=== PATIENT | male | born 1975 | race Caucasian/White ===

== ENCOUNTER 2016-08-31 10:10 | Inpatient (IN) ==
[2016-08-31] MEDS ORDERED: *HR* HYDROmorphone (PF) 1 MG/ML SYRINGE IVP ONE (10:23)
[2016-08-31] MEDS ORDERED: Ketorolac 30 MG/ML VIAL IV ONE (10:23)
--- NOTE | 2016-08-31 10:25 | Emergency Department Note ---
Disposition Clinical Impression: Right forearm cellulitis Disposition: Admitted As Inpatient Condition: Fair General Adult HPI - General Chief complaint: ED Extremity Injury, Upper Stated complaint: Arm injury due to a needle Time Seen by Provider: 08/31/16 10:19 Source: patient Limitations: no limitations - History of Present Illness Pain Scale: 10 - Related Data Home Medications Medication Instructions Recorded Confirmed Insulin Glargine,Hum.rec.anlog 50 unit SQ HS 03/05/16 03/05/16 [Lantus Solostar] Insulin LISPRO [Humalog Kwikpen 0 unit SQ TIDWM 03/05/16 03/05/16 U-100] Loratadine [Claritin] 10 mg PO DAILY 03/05/16 03/05/16 Oxycodone HCl 10 mg PO Q3H PRN 03/05/16 03/05/16 Ranitidine HCl [Heartburn Relief] 150 mg PO BID 03/05/16 03/05/16 Sennosides [Laxative] 17.2 mg PO HS 03/05/16 03/05/16 Previous Rx's Medication Instructions Recorded Guaifenesin [Mucinex] 1,200 mg PO BID PRN #60 tbbp.12hr 03/08/16 Levofloxacin [Levaquin] 750 mg PO DAILY #10 tablet 03/08/16 Cyclobenzaprine [Flexeril] 10 mg PO TID PRN #7 tablet 05/05/16 Ibuprofen [Motrin] 600 mg PO Q8HR PRN #10 tab 05/05/16 Allergies Allergy/AdvReac Type Severity Reaction Status Date / Time tramadol Allergy Rash Verified 03/05/16 11:37 hydrocodone AdvReac Vomiting Verified 03/05/16 11:37 Past Medical History - Past Medical History Medical history: Reports: diabetes Psychiatric history: Reports: no psych history - Social History Smoking Status: Current every day smoker Smokeless Tobacco Status: No Alcohol use: Reports: none Drug use: Reports: none, opiates, IVDU Physical Exam - General Limitations: no limitations General appearance: alert, in no apparent distress Course Vital Signs Temperature 99.6 F 08/31/16 10:11 Pulse Rate 101 08/31/16 10:11 Respiratory Rate 20 08/31/16 10:11 Blood Pressure 112/66 08/31/16 10:11 O2 Sat by Pulse Oximetry 97 08/31/16 10:11 Temperature 99.6 F 08/31/16 10:11 Pulse Rate 101 08/31/16 10:11 Respiratory Rate 16 08/31/16 12:19 Blood Pressure 101/76 08/31/16 12:19 O2 Sat by Pulse Oximetry 97 08/31/16 10:11 Oxygen Delivery Oxygen Delivery Room Air Medical Decision Making - Lab Data Result diagrams: 08/31/16 10:31 08/31/16 10:31 Lab Results 08/31/16 08/31/16 08/31/16 Range/Units 10:31 10:31 10:31 WBC 13.1 H (4.3-11.1) K/mcL RBC 5.18 (4.19-5.50) M/mcL Hgb 15.3 (12.9-16.9) g/dL Hct 42.9 (37.5-50.1) % MCV 82.8 L (83.0-100.0) fL MCH 29.5 (28.0-33.3) pg MCHC 35.7 H (31.6-35.5) g/dL RDW 12.4 (11.5-14.5) % Plt Count 270 (140-400) K/mcL MPV 10.1 (9.4-12.4) fL Immature Gran % 0.3 (0-4) % Seg Neutrophils % 87.7 % Lymphocytes % 6.6 % Monocytes % 4.9 % Eosinophils % 0.1 % Basophils % 0.4 % Neutrophils # 11.5 H (1.6-8.9) K/mcL Lymphocytes # 0.9 (0.6-4.6) K/mcL Monocytes # 0.6 (0.0-1.3) K/mcL Eosinophils # 0.0 (0.0-0.6) K/mcL Basophils # 0.1 (0.0-0.2) K/mcL PT 14.7 H (9.4-12.1) Seconds INR 1.4 APTT 33.6 (26.0-36.0) Seconds Sodium 134 L (136-145) mEq/L Potassium 3.4 L (3.5-4.5) mEq/L Chloride 96 L (98-109) mEq/L Carbon Dioxide 27 (19-29) mEq/L BUN 9 (8-26) mg/dL Creatinine 0.98 (0.72-1.25) mg/dL Est GFR ( Amer) > 60 (> 60) Est GFR (Non-Af Amer) > 60 (> 60) BUN/Creatinine Ratio 9 (6-26) Glucose 252 H (70-99) mg/dL Calculated Osmolality 285 (280-300) Calcium 9.6 (8.6-10.8) mg/dL Total Bilirubin 1.1 (0.2-1.2) mg/dL AST 8 (5-34) Units/L ALT 10 (0-55) Units/L Alkaline Phosphatase 87 (38-126) Units/L Serum Total Protein 7.7 (6.0-8.3) g/dL Albumin 3.4 L (3.5-5.0) g/dL Globulin 4.3 H (2.4-3.5) g/dL Albumin/Globulin Ratio 0.8 L (1.1-2.2) Attestation Statement - Attestation Attestation: I examined this patient and my medical decision-making was reviewed with the EDUCATIONAL RESOURCE COORDINATOR/PA/Advanced Practice Nurse/Resident Physician. I agree with the documented findings, disposition and treatment plan as described except to the extent set forth below. [id number] time provided Patient complains of right forearm pain and swelling. He states he dropped a refrigerator on the affected area 4 days ago. He attempted to drain the affected area with a needle yesterday. He is adamant that he has not used IV drugs for approximately one year. On presentation, the patient is very anxious and appears uncomfortable. He has a tense, tender, indurated, erythematous area to the volar aspect of his right proximal forearm. Plan of care and management discussed by me with the resident physician. IV enhanced CT of his right upper extremity ordered.
--- NOTE | 2016-08-31 10:39 | Emergency Department Note ---
Disposition Clinical Impression: Right forearm cellulitis Disposition: Admitted As Inpatient Condition: Fair Time of Disposition: 12:03 Trauma HPI - General Chief Complaint: ED Extremity Injury, Upper Stated Complaint: Arm injury due to a needle Time Seen by Provider: 08/31/16 10:19 Source: patient Mode of arrival: ambulatory Limitations: no limitations Nursing Notes Reviewed: Yes Vital Signs Reviewed: Yes - History of Present Illness HPI Narrative: Patient is a 41 year old male with history of psoriasis who presents with complaint of severe right forearm abscess and pain. Patient appears very uncomfortable and anxious. Patient reports 4 days ago he was cleaning out a commercial refrigerator and it feel onto his forearm pinning it to a fench. Patient reports initial severe pain and ability to move forearm slightly with decreased claims correspondence clerk strength. Patient denies any initial abrasions or lacerations. Patient reports that yesterday his forearm began to swell, turned red, and has been more painful. Patient reports he took a clean needle to it, but was unable to express anything other than blood. Patient woke up this morning and pain was more severe, unable to move his arm and hand due to pain, and reports numbing and tingling of fingers or right hand. Patient denies fevers, chills, sweats, headaches, changes in vision or hearing, nausea, vomiting, chest pain, shortness of breath, abdominal pain, changes in bowels or bladder. Of note, patient reports he is a prior IV drug user, last used 1 year ago, and is currently on suboxone therapy, last dose 3-4 days ago. Patient reports prior staph infection. Pt Subjective Complaint: injury Onset (ago): day(s) Location - Extremities: Right: forearm - Related Data Home Medications Medication Instructions Recorded Confirmed Insulin Glargine,Hum.rec.anlog 50 unit SQ HS 03/05/16 03/05/16 [Lantus Solostar] Insulin LISPRO [Humalog Kwikpen 0 unit SQ TIDWM 03/05/16 03/05/16 U-100] Loratadine [Claritin] 10 mg PO DAILY 03/05/16 03/05/16 Oxycodone HCl 10 mg PO Q3H PRN 03/05/16 03/05/16 Ranitidine HCl [Heartburn Relief] 150 mg PO BID 03/05/16 03/05/16 Sennosides [Laxative] 17.2 mg PO HS 03/05/16 03/05/16 Previous Rx's Medication Instructions Recorded Guaifenesin [Mucinex] 1,200 mg PO BID PRN #60 tbbp.12hr 03/08/16 Levofloxacin [Levaquin] 750 mg PO DAILY #10 tablet 03/08/16 Cyclobenzaprine [Flexeril] 10 mg PO TID PRN #7 tablet 05/05/16 Ibuprofen [Motrin] 600 mg PO Q8HR PRN #10 tab 05/05/16 Allergies Allergy/AdvReac Type Severity Reaction Status Date / Time tramadol Allergy Rash Verified 03/05/16 11:37 hydrocodone AdvReac Vomiting Verified 03/05/16 11:37 Constitutional: Reports: as per HPI, weakness. Denies: fever, chills, night sweats Eyes: Reports: as per HPI ENT ED: Reports: as per HPI Cardiovascular: Reports: as per HPI. Denies: chest pain, palpitations, syncope Respiratory: Reports: as per HPI. Denies: cough, dyspnea Gastrointestinal: Reports: as per HPI. Denies: abdominal pain, nausea, vomiting , diarrhea, constipation Genitourinary: Reports: as per HPI. Denies: dysuria Musculoskeletal: Reports: as per HPI, myalgia (R forearm). Denies: back pain, neck pain, joint swelling, arthralgia Integumentary: Reports: as per HPI. Denies: rash, abrasion, lesions Neurological: Reports: as per HPI, weakness, numbness, paresthesias. Denies: headache Psychiatric: Reports: as per HPI Endocrine: Reports: as per HPI Hematological/Lymphatic: Reports: as per HPI Past Medical History - Past Medical History Medical history: Reports: diabetes, other (psoriasis) Psychiatric history: Reports: no psych history - Social History Smoking Status: Current every day smoker Smokeless Tobacco Status: No Alcohol use: Reports: none Drug use: Reports: none, opiates, IVDU Physical Exam - General Limitations: no limitations General appearance: alert, anxious, in distress, cachectic - Head Head exam: atraumatic, normocephalic, normal inspection - Eye Eye exam: Present: normal appearance, PERRL, EOMI - ENT ENT exam: normal exam, normal oropharynx, mucous membranes moist - Neck Neck exam: Present: normal inspection, full ROM, trachea midline - Chest Chest inspection: Present: normal inspection, symmetric chest wall rise - Respiratory Respiratory exam: Present: normal lung sounds bilaterally, other (tachypnea) - Cardiovascular Cardiovascular exam: Present: normal rhythm, tachycardia, normal heart sounds, + S1, +S2 - Abdominal Exam Abdominal exam: Present: soft, Non-Tender, normal bowel sounds - Extremities Exam Extremities exam: Present: other (Right upper forearm: noted severe tenderness to light touch, swollen, firm, erythematous area about 6 cm x 3 cm long area, no lesions noted, decreased sensation right hand, decreased strength upper extremity and hand on right compared to left. Pulses equal bilaterally. ROM right upper extremity decreased secondary to pain.) - Back Exam Back exam: Present: full ROM. Absent: tenderness - Neurological Exam Neurological exam: Present: alert, oriented X3 - Psychiatric Psychiatric exam: Present: normal affect, anxious - Skin Skin exam: Present: warm, dry, intact, normal color, rash (multiple 5mm diameter scaly macular rash over entire body.), other (except as noted above) Course Course Narrative: Based on history and exam, suspect traumatic right forearm injury with cellulitis vs deep tissue infection vs myositis vs compartment syndrome complication. Imaging and labs ordered. Pain management. Vital Signs Temperature 99.6 F 08/31/16 10:11 Pulse Rate 101 08/31/16 10:11 Respiratory Rate 20 08/31/16 10:11 Blood Pressure 112/66 08/31/16 10:11 O2 Sat by Pulse Oximetry 97 08/31/16 10:11 Temperature 99.6 F 08/31/16 10:11 Pulse Rate 101 08/31/16 10:11 Respiratory Rate 16 08/31/16 12:19 Blood Pressure 101/76 08/31/16 12:19 O2 Sat by Pulse Oximetry 97 08/31/16 10:11 Oxygen Delivery Oxygen Delivery Room Air Trauma - [facility] Narrative Medical decision making narrative: Right forearm traumatic injury about 4 days ago. Complaint of severe pain with numbness, tingling, inability to move, and weakness due to pain. CT forearm reveals cellulitis without gas or abscess formation. Will start antibiotics including vancomycin and zosyn due to history of staph. - Lab Data Lab results reviewed: Yes I reviewed the patient's lab results. Result diagrams: 08/31/16 10:31 08/31/16 10:31 Lab Results 08/31/16 08/31/16 08/31/16 Range/Units 10:31 10:31 10:31 WBC 13.1 H (4.3-11.1) K/mcL RBC 5.18 (4.19-5.50) M/mcL Hgb 15.3 (12.9-16.9) g/dL Hct 42.9 (37.5-50.1) % MCV 82.8 L (83.0-100.0) fL MCH 29.5 (28.0-33.3) pg MCHC 35.7 H (31.6-35.5) g/dL RDW 12.4 (11.5-14.5) % Plt Count 270 (140-400) K/mcL MPV 10.1 (9.4-12.4) fL Immature Gran % 0.3 (0-4) % Seg Neutrophils % 87.7 % Lymphocytes % 6.6 % Monocytes % 4.9 % Eosinophils % 0.1 % Basophils % 0.4 % Neutrophils # 11.5 H (1.6-8.9) K/mcL Lymphocytes # 0.9 (0.6-4.6) K/mcL Monocytes # 0.6 (0.0-1.3) K/mcL Eosinophils # 0.0 (0.0-0.6) K/mcL Basophils # 0.1 (0.0-0.2) K/mcL PT 14.7 H (9.4-12.1) Seconds INR 1.4 APTT 33.6 (26.0-36.0) Seconds Sodium 134 L (136-145) mEq/L Potassium 3.4 L (3.5-4.5) mEq/L Chloride 96 L (98-109) mEq/L Carbon Dioxide 27 (19-29) mEq/L BUN 9 (8-26) mg/dL Creatinine 0.98 (0.72-1.25) mg/dL Est GFR ( Amer) > 60 (> 60) Est GFR (Non-Af Amer) > 60 (> 60) BUN/Creatinine Ratio 9 (6-26) Glucose 252 H (70-99) mg/dL Calculated Osmolality 285 (280-300) Calcium 9.6 (8.6-10.8) mg/dL Total Bilirubin 1.1 (0.2-1.2) mg/dL AST 8 (5-34) Units/L ALT 10 (0-55) Units/L Alkaline Phosphatase 87 (38-126) Units/L Serum Total Protein 7.7 (6.0-8.3) g/dL Albumin 3.4 L (3.5-5.0) g/dL Globulin 4.3 H (2.4-3.5) g/dL Albumin/Globulin Ratio 0.8 L (1.1-2.2) - Radiology Data Radiology results reviewed: Yes I reviewed the patient's radiology results. Elbow CT 08/31/16 10:23 IMPRESSION: Mild diffuse subcutaneous edema and fat stranding involving the right upper extremity is most consistent with cellulitis. There is no evidence of an abscess, soft tissue gas, or radiopaque foreign body. The osseous structures are intact, without evidence of osteomyelitis. D/ /31/2016 11:54:53 Miller Perry MD / alysia Interpreting Provider: Miller Perry MD
[2016-08-31 10:40] LABS: Basophils # 0.1 K/mcL (0.0-0.2); Basophils % 0.4 %; Eosinophils % 0.1 %; Hematocrit 42.9 % (37.5-50.1); Hemoglobin 15.3 g/dL (12.9-16.9); Immature Granulocytes % 0.3 % (0-4); Lymphocytes # 0.9 K/mcL (0.6-4.6); Lymphocytes % 6.6 %; Mean Corpuscular HGB Conc 35.7 g/dL (31.6-35.5); Mean Corpuscular Hemoglobin 29.5 pg (28.0-33.3); Mean Corpuscular Volume 82.8 fL (83.0-100.0); Mean Platelet Volume 10.1 fL (9.4-12.4); Monocytes # 0.6 K/mcL (0.0-1.3); Monocytes % 4.9 %; Neutrophils # 11.5 K/mcL (1.6-8.9); Platelet Count 270 K/mcL (140-400); Red Blood Count 5.18 M/mcL (4.19-5.50); Red Cell Distribution Width 12.4 % (11.5-14.5); Segmented Neutrophils % 87.7 %
[2016-08-31 10:51] LABS: INR 1.4; Prothrombin Time 14.7 Seconds (9.4-12.1)
[2016-08-31 10:54] LABS: Activated Partial Thrombo Time 33.6 Seconds (26.0-36.0)
[2016-08-31 10:55] LABS: Alanine Aminotransferase 10 Units/L (0-55); Albumin 3.4 g/dL (3.5-5.0); Albumin/Globulin Ratio 0.8 (1.1-2.2); Alkaline Phosphatase 87 Units/L (38-126); Aspartate Amino Transferase 8 Units/L (5-34); BUN/Creatinine Ratio 9 (6-26); Bilirubin,Total 1.1 mg/dL (0.2-1.2); Blood Urea Nitrogen 9 mg/dL (8-26); Calcium 9.6 mg/dL (8.6-10.8); Carbon Dioxide 27 mEq/L (19-29); Chloride 96 mEq/L (98-109); Globulin 4.3 g/dL (2.4-3.5); Glucose 252 mg/dL (70-99); Osmolality,Calculated 285 (280-300); Potassium 3.4 mEq/L (3.5-4.5); Sodium 134 mEq/L (136-145); Total Protein 7.7 g/dL (6.0-8.3); eGFR For African Americans > 60 (> 60); eGFR For Non-African Americans > 60 (> 60)
[2016-08-31] MEDS ORDERED: Ondansetron ODT 4 MG TAB.RAPDIS SL ONE (11:12)
[2016-08-31] MEDS ORDERED: Piperacillin/Tazobactam 3.375 GM in D5% in Water (Mini-Bag+) 100 ML IVPB ONE (11:59)
[2016-08-31] MEDS ORDERED: Vancomycin 1,000 MG in D5% in Water 250 ML IVPB ONE (11:59)
[2016-08-31] MEDS ORDERED: *HR* HYDROmorphone (PF) 1 MG/ML SYRINGE IVP PRN (13:07)
[2016-08-31] MEDS ORDERED: Naloxone 0.4 MG/ML INJ IVP PRN ×2 (13:07→17:04)
[2016-08-31] MEDS ORDERED: *HR* OxyCODONE Immed Rel 5 MG TABLET PO PRN (13:07)
[2016-08-31] MEDS ORDERED: Ondansetron 4 MG/2 ML VIAL IVP PRN ×2 (13:07→17:04)
[2016-08-31] MEDS ORDERED: *HR* Dextrose 50 % in Water (Syg) 50 ML SYRINGE IVP PRN ×2 (13:11→17:04)
[2016-08-31] MEDS ORDERED: Dextrose Gel 15 GM PO PRN ×4 (13:11→17:04)
[2016-08-31] MEDS ORDERED: D5% in Water 1,000 ML IV PRN ×2 (13:11→17:04)
--- NOTE | 2016-08-31 13:15 | Internal Med History&Physical ---
Date of Encounter: 08/31/16 Time of Encounter: 12:45 Internal Medicine - H&P: HPI Chief complaint: Right upper arm pain and swelling after trauma. Admitted From: Emergency Dept Plans for Post Hospital Care: Home History of present illness: Mr. Medina is a 41 year old male with medical history of psoriasis, chronic hepatitis, history of IVDU (heroine) presents with severe pain and swelling in the mid upper arm of 1 week duration. He report traumatic injury when a refrigerator fell on his left elbow. He reports he nicked the swelling yesterday with a small lancet in a bid to drain it but he observed no drainage. Pain and swelling increased subsequently. He reports mild fever,, he has been unable to move the arm of use the fingers of that arm. He reports tingling sensation in the fingers of the hand, and decreased foster care therapist and fine motor movements. He denies chills, sweats, headaches, changes in vision or hearing, nausea, vomiting, chest pain, shortness of breath, abdominal pain, no gastrointestinal, urinary or respiratory symptoms. No other constitutional symptoms. He reports his last use of Heroine was over a year ago, and he is presently on Suboxone therapy. He does not recall if he ever had MRSA. He has chronic hepatitis C. He is FULL CODE as per discussion, and he nominates his [place] ([phone]) as his NOK/POA. ROS: A 10 point ROS was performed. see HPI. Positives and relevant negatives are detailed, system-symptom not mention assumed negative unless otherwise stated. Family history: fATHER AND MOTHER: dm2, brother: ESRD on HD. Vital Signs Temperature 99.6 F 08/31/16 10:11 Pulse Rate 101 08/31/16 10:11 Respiratory Rate 20 08/31/16 10:11 Blood Pressure 112/66 08/31/16 10:11 O2 Sat by Pulse Oximetry 97 08/31/16 10:11 Temperature 99.6 F 08/31/16 10:11 Pulse Rate 101 08/31/16 10:11 Respiratory Rate 16 08/31/16 12:19 Blood Pressure 101/76 08/31/16 12:19 O2 Sat by Pulse Oximetry 97 08/31/16 10:11 In marked distress from pain, ill/toxic looking. Not pale, anicteric, afebrile, acyanotic. Poor dental hygiene, carious teeth, periodontitis HEENT: No JVD, no cervical lymphadenopathy, Chest : CTAB Heart: Mild tachycardia, RR, HS1/2, no m/r/g. Abdomen: soft, vague, inconsitent non-localized abdominal wall tenderness, no guarding, no rebound, no masses, BS+ : No flank tenderness, no CVA tenderness, no suprapubic tenderness. ENTERER: AAO . Skin:Seborrheic dermatitis of face, extensive psoriasis, on extremities. Extremities: Right cubital fossa tense, overlying erythma, no fluctuance elicited, ascending tenderness up to the lateral group of axillary lymph nodes without palpable lymphadenopathy. Ulnar and radial pulses still palpable. He is only barely able to flex and extend the fingers and wrist of the left upper arm. No pedal edema, normal pedal pulses, no calf tenderness. Lab Results 08/31/16 08/31/16 08/31/16 Range/Units 10:31 10:31 10:31 WBC 13.1 H (4.3-11.1) K/mcL RBC 5.18 (4.19-5.50) M/mcL Hgb 15.3 (12.9-16.9) g/dL Hct 42.9 (37.5-50.1) % MCV 82.8 L (83.0-100.0) fL MCH 29.5 (28.0-33.3) pg MCHC 35.7 H (31.6-35.5) g/dL RDW 12.4 (11.5-14.5) % Plt Count 270 (140-400) K/mcL MPV 10.1 (9.4-12.4) fL Immature Gran % 0.3 (0-4) % Seg Neutrophils % 87.7 % Lymphocytes % 6.6 % Monocytes % 4.9 % Eosinophils % 0.1 % Basophils % 0.4 % Neutrophils # 11.5 H (1.6-8.9) K/mcL Lymphocytes # 0.9 (0.6-4.6) K/mcL Monocytes # 0.6 (0.0-1.3) K/mcL Eosinophils # 0.0 (0.0-0.6) K/mcL Basophils # 0.1 (0.0-0.2) K/mcL PT 14.7 H (9.4-12.1) Seconds INR 1.4 APTT 33.6 (26.0-36.0) Seconds Sodium 134 L (136-145) mEq/L Potassium 3.4 L (3.5-4.5) mEq/L Chloride 96 L (98-109) mEq/L Carbon Dioxide 27 (19-29) mEq/L BUN 9 (8-26) mg/dL Creatinine 0.98 (0.72-1.25) mg/dL Est GFR ( Amer) > 60 (> 60) Est GFR (Non-Af Amer) > 60 (> 60) BUN/Creatinine Ratio 9 (6-26) Glucose 252 H (70-99) mg/dL Calculated Osmolality 285 (280-300) Calcium 9.6 (8.6-10.8) mg/dL Total Bilirubin 1.1 (0.2-1.2) mg/dL AST 8 (5-34) Units/L ALT 10 (0-55) Units/L Alkaline Phosphatase 87 (38-126) Units/L Serum Total Protein 7.7 (6.0-8.3) g/dL Albumin 3.4 L (3.5-5.0) g/dL Globulin 4.3 H (2.4-3.5) g/dL Albumin/Globulin Ratio 0.8 L (1.1-2.2) CT elbow (right) Soft tissue edema and stranding. No abscess, no gas, no fluid collection. Consistent with cellulitis. IMP 1. Right cubital cellulitis, probable ascending lymphangitis and or infective thrombophlebitis. Traumatic vs related to intravenous drug use 2. At risk of compartment syndrome 3. Probable continuing intravenous illicit drug use. 4. Mild hyponatremia, hypokalemia. 5. Periodontitis and caries. Chronic morbidities DM2 on insulin Chronic hepatitis c from illicit drug use, not on anti-virals Sebrorrheic dematitis (facial) Psoriasis. No acute flare. PLAN Admit Consult hand surgeon Venous doppler of right upper extremity IV Zosyn and vancomycin Blood culture x 2 Optimal pain control Urine drug screen Elevate arm Insulin, Levemir 25u BID, medium dose insulin sliding scale TIDAC and low dose scale QHS Lovenox 40 mg SC QD for DVT prophylaxis F/U with program therapist to treat seborrheic dermatitis of face and psoriasis. F/U with decision science analyst in the out-patient' for treatment of chronic hepatitis C. I discussed my assessment with the patient, he verbalized understanding and is agreeable to admission. He is huong risk for sepsis and compartment syndrome. Past Med Surg Social Fam HX - Past Medical History Medical history: diabetes, hepatitis, liver disease (chronic hepatitis C), other (history of illicit drug use, psoriasis, seborrheic dermatitis (face)) Psychiatric history: no psych history - Past Surgical History Surgical History: other (hemorrhoidectomy.) - Social History Smoking Status: Current every day smoker Packs per day: 0.5ppd. Smokeless Tobacco Status: No Alcohol use: none Drug use: none (he denies use in the past year.), opiates, IVDU Occupational status: unemployed Current living situation: Home - Independent Activity Level: Independent ambulation Recent Out of Country Travel Within the Last 8 Weeks: No Exposure or Possible Exposure to Illness During Travel: No - Family History Mother Hx Family Endocrine Disorder: Yes (DM) Internal Medicine - H&P: Meds Insulin Glargine,Hum.rec.anlog [Lantus Solostar] 55 unit SQ HS 03/05/16 [History ] Insulin LISPRO [Humalog Kwikpen U-100] 14 unit SQ TIDWM 03/05/16 [History] Allergies hydrocodone Allergy (Verified 08/31/16 13:44) Rash tramadol Allergy (Verified 03/05/16 11:37) Rash All Systems PM: A 10-system review of systems was performed and is negative for pertinent findings except as documented above in the HPI. - Constitutional Constitutional: as per HPI - EENT Eyes: as per HPI Ears: as per HPI Nose, mouth and throat: as per HPI - Breasts Breasts: as per HPI - Cardiovascular Cardiovascular ROS IM: as per HPI - Respiratory Respiratory: as per HPI - Gastrointestinal Gastrointestinal: as per HPI - Genitourinary Genitourinary ROS male: as per HPI - Musculoskeletal Musculoskeletal ROS IM: as per HPI - Neurological Neurological ROS: as per HPI - Psychiatric Psychiatric: as per HPI - Endocrine Endocrine IM: as per HPI - Hematologic/Lymphatic Hematologic/Lymphatic: as per HPI - Allergic/Immunologic Allergic/Immunologic: as per HPI - Constitutional Vitals: Temp Pulse Resp BP Pulse Ox 99.6 F 101 16 101/76 97 08/31/16 10:11 08/31/16 10:11 08/31/16 12:19 08/31/16 12:19 08/31/16 10:11 Internal Med - H&P Results - Labs CBC & Chem 7: 08/31/16 10:31 08/31/16 10:31
[2016-08-31] MEDS ORDERED: 0.9 % Sodium Chloride w KCl 40 MEQ/1,000 ML MLS IVC SCH (13:30)
[2016-08-31] MEDS ORDERED: Vancomycin 1,250 MG in D5% in Water 250 ML IVPB SCH (14:00)
--- NOTE | 2016-08-31 14:55 | Orthopedic Consult Note ---
Date of Encounter: 08/31/16 Time of Encounter: 14:30 Assessment and Plan (1) Right forearm cellulitis Current Visit: Yes Status: Acute I believe there is an abscess developing in the antecubital fossa The patient will be taken out of her room for an incision drainage. The risks, benefits alternatives were discussed. He is aware that there will be left open to drain with packing. The wound will close by secondary intention. History of Present Illness Chief complaint: Right elbow pain and swelling HPI: Mr. Medina is a 41 year old male who is right-hand dominant, complaining of a 4 day history of right elbow swelling and pain. The patient reports that a refrigerator fell of his forearm 4 days ago. Less than a got red and swollen , and he states that he used a small needle to try and drain it and got worse overnight. The patient came in to emergency room this morning. Patient has significant past history of IV drug abuse with heroin. Patient states he has not used heroin for 1 year now. Past Med Surg Social Fam HX - Past Medical History Medical history: diabetes, hepatitis, liver disease (chronic hepatitis C), other (history of illicit drug use, psoriasis, seborrheic dermatitis (face)) Psychiatric history: no psych history - Past Surgical History Surgical History: other (hemorrhoidectomy.) - Social History Smoking Status: Current every day smoker Packs per day: 0.5ppd. Smokeless Tobacco Status: No Alcohol use: none Drug use: none (he denies use in the past year.), opiates, IVDU - Family History Mother Hx Family Endocrine Disorder: Yes (DM) Medications and Allergies Insulin Glargine,Hum.rec.anlog [Lantus Solostar] 55 unit SQ HS 03/05/16 [History ] Insulin LISPRO [Humalog Kwikpen U-100] 14 unit SQ TIDWM 03/05/16 [History] Allergies hydrocodone Allergy (Verified 08/31/16 13:44) Rash tramadol Allergy (Verified 03/05/16 11:37) Rash All Systems Reviewed: A 10-system review of systems was performed and is negative for pertinent findings except as documented above in the HPI. Physical Exam - Constitutional Vitals: Temp Pulse Resp BP Pulse Ox 99.6 F 101 16 101/76 97 08/31/16 10:11 08/31/16 10:11 08/31/16 12:19 08/31/16 12:19 08/31/16 10:11 - Elbow right Location of pain elbow: anterior Pain modifiers elbow: with motion Stiffness: Yes Swelling: Yes Other symptoms OR: other (Positive erythema in the antecubital fossa, he is very tender and fairly tense localized area, no fluctuance or gas crepitus felt) Results - Labs Result Diagrams: 08/31/16 10:31 08/31/16 10:31 Labs: Abnormal lab results WBC 13.1 K/mcL (4.3-11.1) H 08/31/16 10:31 MCV 82.8 fL (83.0-100.0) L 08/31/16 10:31 MCHC 35.7 g/dL (31.6-35.5) H 08/31/16 10:31 Neutrophils # 11.5 K/mcL (1.6-8.9) H 08/31/16 10:31 PT 14.7 Seconds (9.4-12.1) H 08/31/16 10:31 Sodium 134 mEq/L (136-145) L 08/31/16 10:31 Potassium 3.4 mEq/L (3.5-4.5) L 08/31/16 10:31 Chloride 96 mEq/L (98-109) L 08/31/16 10:31 Glucose 252 mg/dL (70-99) H 08/31/16 10:31 Albumin 3.4 g/dL (3.5-5.0) L 08/31/16 10:31 Globulin 4.3 g/dL (2.4-3.5) H 08/31/16 10:31 Albumin/Globulin Ratio 0.8 (1.1-2.2) L 08/31/16 10:31 All other labs normal. Consult Discharge Plan - Plan Referrals: Óscar Doyle MD [Primary Care Provider] -
[2016-08-31] MEDS ORDERED: Bupivacaine-MPF 0.25% 10 ML VIAL ONE (15:07)
[2016-08-31] MEDS ORDERED: Lidocaine -MPF 1% 5 ML AMPUL ONE (15:07)
--- NOTE | 2016-08-31 15:14 | Anesthesia Evaluation PreOp ---
Date of Encounter: 08/31/16 Time of Encounter: 15:15 - Past History Planned Operation: I and D Rt Elbow Cardiac History: Denies any Significant Hx Pulmonary History: Smoker STEAMBLASTER History: Denies Any Significant HX Other Medical History: Hepatic (Hep C), Diabetes Type II Anesthesia History: No Prior Anesthetic Complications Alcohol Use: none Drug use: opiates, IVDU Medications and Allergies Insulin Glargine,Hum.rec.anlog [Lantus Solostar] 55 unit SQ HS 03/05/16 [History ] Insulin LISPRO [Humalog Kwikpen U-100] 14 unit SQ TIDWM 03/05/16 [History] Allergies hydrocodone Allergy (Verified 08/31/16 13:44) Rash tramadol Allergy (Verified 03/05/16 11:37) Rash - Meds/Allergy Pre-op Review Medications Reviewed: Yes Allergies Reviewed: Yes Beta Blockers on Current Med List: No Anesthesia Results - Labs 08/31/16 10:31 08/31/16 10:31 Anesthesia Exam O2 Sat Height 1.83 m Weight 79.379 kg O2 Sat by Pulse Oximetry 97 Vital Signs Temp Pulse Resp BP Pulse Ox 99.6 F 101 20 112/66 97 08/31/16 10:11 08/31/16 10:11 08/31/16 10:11 08/31/16 10:11 08/31/16 10:11 Height: 6'0 Weight: 175 lbs NPO (# of Hours): MN - HEENT Pupil (Motor): Pupils equal, EOMI Mallampati: II Teeth: Normal Oral Opening: Greater than 3 - STEAMBLASTER LOC: Oriented STEAMBLASTER Motor: Normal RUE, Normal LUE, Normal RLE, Normal LLE, Normal Face STEAMBLASTER Sensory: Normal: RUE, LUE, RLE, LLE, Face - Cardiac Rhythm: Regular Murmur: None - Pulmonary Breath Sounds: bilateral Clear Respiratory Effort: Symmetrical Anesthesia Assess/Plan ASA Score: 2, E Anesthetic Plan: General Monitoring Plan: Standard Monitors Recovery Plan: PACU (Discussed GA, agrees to proceed)
[2016-08-31] MEDS ORDERED: Albuterol 2.5 MG/3 ML NEBULIZER ONE (15:19)
[2016-08-31] MEDS ORDERED: Albuterol 2.5 MG/3 ML NEBULIZER IH ONE (15:20)
[2016-08-31] MEDS ORDERED: *HR* FentaNYL (PF) 100 MCG/2 ML VIAL ONE ×2 (15:22→15:24)
[2016-08-31] MEDS ORDERED: *HR* Propofol 200 MG/20 ML VIAL IVP ONE (15:22)
[2016-08-31] MEDS ORDERED: *HR* Succinylcholine 200 MG/10 ML VIAL IVP ONE (15:23)
[2016-08-31] MEDS ORDERED: Lidocaine -MPF 4% 5 ML AMPUL ONE (15:23)
[2016-08-31] MEDS ORDERED: Lidocaine -MPF 2% 2 ML VIAL ONE (15:23)
[2016-08-31] MEDS ORDERED: Vancomycin 1,250 MG in D5% in Water 250 ML IVPB ONE ×3 (15:28→20:00)
[2016-08-31] MEDS ORDERED: *HR* HYDROmorphone 2 MG/ML SYRINGE ONE (15:49)
[2016-08-31] MEDS ORDERED: Piperacillin/Tazobactam 3.375 GM in D5% in Water (Mini-Bag+) 100 ML IVPB SCH (16:00)
[2016-08-31] MEDS ORDERED: Ondansetron 4 MG/2 ML VIAL ONE (16:02)
[2016-08-31] MEDS ORDERED: Dexamethasone 4 MG/ML VIAL ONE (16:02)
--- NOTE | 2016-08-31 16:27 | Operative Note ---
Date of procedure: 08/31/16 Pre-op diagnosis: Right forearm abscess Post-op diagnosis: same Procedure: Right forearm/elbow incision drainage of deep abscess Anesthesia: ANNA Surgeon: Maykel Batres Estimated blood loss (cc): 3 Tourniquet Time (Minutes): 2 Specimen: To microbiology Condition: stable Disposition: PACU Procedure in Detail: Indications: The patient is a 41-year-old man complaining of a increasing swelling and erythema in is right forearm/ antecubital fossa. The CT scan shows signs of cellulitis. Clinic exam shows an area of erythema where the skin is fairly tense and swollen in this area of cellulitis. Procedure: The patient received IV antibiotics on the floor and holding area, was brought into the operating room and placed on the OR table in supine position with the right upper extremity on a hand table. The patient underwent general anesthesia. A tourniquet was placed on the right arm close to the axilla, and the right upper extremity was then prepped and draped in usual sterile fashion. A timeout was performed. The right upper extremity was then elevated, exsanguinated with an Rajendra wrap, and the tourniquet was raised to a pressure of 250 mmHg. A 4-5 cm longitudinal incision made on the volar aspect of the right forearm, and the radial side of the FCR muscle, 2 is a the antecubital fossa, ending approximate 2-3 cm distal to the elbow flexion crease. The subcutaneous tissues was bluntly dissected. Ointment I dissected down to the level of the muscle fascia, there was turbid appearing fluid. On deeper dissection under the muscle fascia, towards the antecubital region, a pocket of pus was encountered. This was cultured for Gram stain, aerobic and anaerobic. I continued spreading under the area of cellulitis including the medial aspect of the elbow. The tourniquet was deflated after 2 minutes. The wounds copiously with normal saline. The soft tissue was pressed on think he show to express any more purulent fluid. Once again irrigating further with normal saline. Hemostasis of the skin edges was obtained with bipolar electrocautery. The wound is packed with 2 inch iodoform packing. The skin incision was closed with 3-0 nylonmattress and simple sutures, leaving the central area open where the packing is coming out. Prior to complete closure of the wound was infiltrated with 10 mL of 0.25% Marcaine for postop pain control. Sterile dressings applied. The patient was extubated and taken to recovery in stable condition.
[2016-08-31] MEDS ORDERED: Insulin LISPRO 300 UNITS/3 ML VIAL SQ SCH ×2 (16:30→21:00)
--- NOTE | 2016-08-31 16:38 | Anesthesia Evaluation Post Op ---
Date of Encounter: 08/31/16 Time of Encounter: 16:40 - Vital Signs Vital Signs: Vital Signs/O2 Sat/Glucose, Most Current Temp Pulse Resp BP Pulse Ox 08/31/16 16:29 90 18 105/67 100 08/31/16 16:19 103.3 F H 96 18 100/58 99 - Lungs Lungs: Clear Ascult./Percussion - Airway Airway: Non-obstructed - Cardiovascular Regular Rate - Mental Status Mental Status: Alert & Oriented, Answers Appropriately - Pain Pain Scale: 0 - Nausea Vomiting Nausea Vomiting: Not Present - Hydration Hydration: Ice chips - Discharge PostOp Status: Transfer Patient to floor
[2016-08-31 18:23] LABS: Amphetamine Screen,Urine Negative ng/mL (Cutoff=1000); Barbiturate Screen,Urine Negative ng/mL (Cutoff=200); Benzodiazepines Screen,Urine Negative ng/mL (Cutoff=200); Cannabinoid Screen,Urine Negative ng/mL (Cutoff = 50); Cocaine Screen,Urine Negative ng/mL (Cutoff= 300); Opiate Screen,Urine Positive ng/mL (Cutoff=300); Phencyclidine Screen,Urine Negative ng/mL (Cutoff=25)
[2016-08-31] MEDS: *HR* HYDROmorphone (PF) 1 MG/ML SYRINGE IVP PRN (19:49)
[2016-08-31] MEDS: Insulin LISPRO 300 UNITS/3 ML VIAL SQ SCH ×2 (20:51→22:07)
[2016-08-31] MEDS: 0.9 % Sodium Chloride w KCl 40 MEQ/1,000 ML MLS IVC SCH (20:56)
[2016-08-31] MEDS ORDERED: Insulin DETEMIR 100 UNIT/ML X5UNITS SQ SCH (21:00)
[2016-08-31] MEDS: Acetaminophen 325 MG TABLET PO PRN (21:02)
[2016-08-31] MEDS: Insulin DETEMIR 100 UNIT/ML X5UNITS SQ SCH ×2 (22:07→23:33)
[2016-08-31] MEDS: Piperacillin/Tazobactam 3.375 GM in D5% in Water (Mini-Bag+) 100 ML IVPB SCH (22:07)
[2016-09-01] MEDS: *HR* HYDROmorphone (PF) 1 MG/ML SYRINGE IVP PRN ×8 (00:07→23:59)
[2016-09-01] MEDS ORDERED: Insulin LISPRO 300 UNITS/3 ML VIAL SQ ONE (00:35)
[2016-09-01 05:19] LABS: Basophils % 0.3 %; Eosinophils % 0.2 %; Hematocrit 33.6 % (37.5-50.1); Immature Granulocytes % 0.3 % (0-4); Lymphocytes # 0.9 K/mcL (0.6-4.6); Lymphocytes % 14.6 %; Mean Corpuscular Volume 83.2 fL (83.0-100.0); Mean Platelet Volume 10.4 fL (9.4-12.4); Monocytes # 0.8 K/mcL (0.0-1.3); Monocytes % 11.9 %; Platelet Count 189 K/mcL (140-400); Red Blood Count 4.04 M/mcL (4.19-5.50); Red Cell Distribution Width 12.3 % (11.5-14.5); Segmented Neutrophils % 72.7 %
[2016-09-01 05:22] LABS: Hemoglobin 12.1 g/dL (12.9-16.9); Neutrophils # 4.7 K/mcL (1.6-8.9)
[2016-09-01 05:39] LABS: BUN/Creatinine Ratio 20 (6-26); Blood Urea Nitrogen 15 mg/dL (8-26); Calcium 8.5 mg/dL (8.6-10.8); Carbon Dioxide 25 mEq/L (19-29); Chloride 104 mEq/L (98-109); Glucose 189 mg/dL (70-99); Osmolality,Calculated 286 (280-300); Potassium 4.2 mEq/L (3.5-4.5); Sodium 135 mEq/L (136-145); eGFR For African Americans > 60 (> 60); eGFR For Non-African Americans > 60 (> 60)
[2016-09-01] MEDS: *HR* OxyCODONE Immed Rel 5 MG TABLET PO PRN ×2 (05:46→09:56)
[2016-09-01] MEDS: Piperacillin/Tazobactam 3.375 GM in D5% in Water (Mini-Bag+) 100 ML IVPB SCH ×3 (05:47→20:23)
[2016-09-01] MEDS: *HR* Enoxaparin 40 MG/0.4 ML SYRINGE SQ SCH (05:47)
[2016-09-01] MEDS ORDERED: *HR* Enoxaparin 40 MG/0.4 ML SYRINGE SQ SCH (06:00)
[2016-09-01] MEDS: 0.9 % Sodium Chloride w KCl 40 MEQ/1,000 ML MLS IVC SCH (07:13)
--- NOTE | 2016-09-01 07:51 | Venous Imaging Report ---
UE Venous Duplex Patient Name:Sridhar Medina Order Number:[id number] Procedure Date:08/31/2016 Date:1975Age:41 yrs Gender:Male Location:[facility] Room #: 3A46 Business Rules Analyst:Rudy Handley RVT, RDCS Referring MD:Jonny Neumann MD tavern car attendant:Óscar Doyle MD Reading MD:Pb Quintanilla MD Primary Indications:Right arm pain Secondary Indications: Impressions: Normal right upper extremity deep venous exam. Acute superficial thrombosis is present in the right cephalic vein. Normal contralateral common femoral vein. Recommendations: After imaging the patient returned to their room. Test completed on 08/31/2016 at 3:02:00 pm. Critical findings reported to ANTWAN Tafoya in person at 3:04:00 pm on 08/31/2016 by Rudy Handley RVT, RDCS. Findings Venous Duplex Results: Right: Venous imaging of the upper extremity reveals full patency and normal vessel compressibility of the right jugular, right subclavian, right axillary, right brachial, right basilic, right radial and right ulnar. Doppler signals in the evaluated veins were normal. There is an acute occlusive thrombus seen in the right cephalic. It demonstrates an incompressible vein. Flow was absent and it did not augment. Left: Venous imaging of the upper extremity reveals full patency and normal vessel compressibility of the left subclavian. Doppler signals in the evaluated veins were normal. Prior Study: No prior study available for comparison. Upper Extremity Venous Duplex Side Vein Compress Spontaneous Flow Augment Right Jugular Normal Yes Phasic Yes Right Subclavian Normal Yes Phasic Yes Right Axillary Normal Yes Phasic Yes Right Brachial Normal Yes Phasic Yes Right Cephalic None no Absent no Right Basilic Normal Yes Phasic Yes Right Radial Normal Yes Phasic Yes Right Ulnar Normal Yes Phasic Yes Left Subclavian Normal Yes Phasic Yes Updated by Pb Quintanilla MD on 09/01/2016 7:42:40 AM electronically signed on 09/01/2016 7:45:58 AM with status of Final
[2016-09-01] MEDS: Insulin LISPRO 300 UNITS/3 ML VIAL SQ SCH ×7 (08:58→20:25)
[2016-09-01] MEDS: Insulin DETEMIR 100 UNIT/ML X5UNITS SQ SCH ×3 (08:59→20:26)
[2016-09-01] MEDS: Vancomycin 1,000 MG in D5% in Water 250 ML IVPB SCH ×2 (09:00→20:24)
[2016-09-01] MEDS: Acetaminophen 325 MG TABLET PO PRN (09:21)
--- NOTE | 2016-09-01 13:18 | Internal Med Progress Note ---
Date of Encounter: 09/01/16 Time of Encounter: 12:40 - Assessment and plan (1) Right forearm cellulitis Current Visit: Yes Status: Acute Assessment and plan: S/P right forearm/elbow Incision & Drainage of Deep abscess by Dr. Batres ( consultation appreciated) Continue IV antibiotics Vancomycin and Zosyn Pharmacy to dose antibiotics, and monitor vancomycin trough. 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 Qualified Code(s): E11.65 - Type 2 diabetes mellitus with hyperglycemia; Z79.4 - FDC (current) use of insulin (3) Hepatitis-C Current Visit: No Status: Chronic Qualifiers: Viral hepatitis chronicity: chronic Hepatic coma status: without hepatic coma Qualified Code(s): B18.2 - Chronic viral hepatitis C (4) DVT prophylaxis Current Visit: Yes Status: Acute Assessment and plan: Lovenox SQ (5) Smoker Current Visit: No Status: Chronic Assessment and plan: Smoking cessation counseling provided patient not ready to quit at this time Refused nicotine replacement therapy at this time (6) History of drug abuse Current Visit: Yes Status: Chronic Assessment and plan: Patient states he has been clean for the last 1.5years Denies any drug use prior to this hospitalization - Subjective Interval history: Patient seen and examined at bedside. Patient status post I&D of abscess in the antecubital fossa. Patient appears to be in no distress and was talking comfortably on the phone as I entered the room, and as the patient saw me, he started reporting of severe pain in his right arm. Patient has history of drug abuse and drug-seeking tendencies, and as per the nursing staff, patient appears to be in no distress until he sees a medical staff member. He states only Dilaudid helps with his pain and no other medications help including the Roxicodone. No other complaints reported at this time. - Constitutional Vitals: Temp Pulse Resp BP Pulse Ox 97.9 F 80 18 99/48 96 09/01/16 12:05 03/06/17 12:05 09/01/16 12:05 09/01/16 12:05 09/01/16 12:05 General appearance: Present: A&O X 3, no acute distress, answers questions appropriately - Head Head exam: Present: atraumatic, normocephalic - Eye Eye exam: Present: PERRL, conjuntiva pink, sclera anicteric - Respiratory Respiratory exam: Present: CTAB. Absent: accessory muscle use, rales, rhonchi, wheezes - Cardiovascular Cardiovascular exam: Present: RRR, +S1, +S2. Absent: diastolic murmur, gallop, rubs, systolic murmur - GI/Abdominal GI/Abdominal exam: Present: normal bowel sounds, soft, no peritoneal signs. Absent: distended, tenderness - Extremities Exam Extremities exam: Present: warm, radial pulses palpable and symetrical. Absent : calf tenderness, pedal edema (Right arm wrapped in dressing) - Neurological Exam Neurological exam: Present: alert, oriented X3 - Psychiatric Psychiatric exam: Present: normal affect, normal mood Internal Medicine: Result - Labs CBC & Chem 7: 09/01/16 05:04 09/01/16 05:04 Labs: Short CBC 09/01/16 Range/Units 05:04 WBC 6.4 D (4.3-11.1) K/mcL Hgb 12.1 L D (12.9-16.9) g/dL Hct 33.6 L (37.5-50.1) % Plt Count 189 (140-400) K/mcL Neutrophils # 4.7 (1.6-8.9) K/mcL BMP 09/01/16 05:04 Sodium 135 L Potassium 4.2 Chloride 104 Carbon Dioxide 25 BUN 15 Creatinine 0.74 Glucose 189 H Calcium 8.5 L - ABG Interpretation ABG results: PT/INR, D-dimer PT 14.7 Seconds (9.4-12.1) H 08/31/16 10:31 - VTE Documentation of Mechanical Device: Intermittent pneumatic compression device Consult Discharge Plan - Plan Referrals: Óscar Doyle MD [Primary Care Provider] -
[2016-09-01] MEDS: Ketorolac 15 MG/ML VIAL IVP PRN ×2 (13:47→20:23)
--- NOTE | 2016-09-01 14:43 | Orthopedics Progress Note ---
Date of Encounter: 09/01/16 Time of Encounter: 12:45 - Assessment and Plan (1) Right forearm cellulitis Current Visit: Yes Status: Acute Dressings removed today and packing removed from the wound without complication. Wound washed with soap/water and dry gauze dressings/kerlix reapplied. Wound is to be washed with soap/water 3xday and dry gauze dressings applied each time. Continue elevation of hand. Continue ROM of hand and elbow as tolerated. Patient still having moderate amount of pain. Pain control per hospitalist. Continue IV abx per hospitalist. Will need PO abx upon discharge. Follow up with Aileen Olivier in [facility] office in 1 week. Subjective Principal diagnosis: POD#1 - right forearm I&D Interval history: Patient had no events or concerns overnight but still having moderate pain. States he has been trying to keep the arm elevated. He has been trying to work on ROM on own. Objective Vital signs: Vital Signs Temp Pulse Resp BP Pulse Ox 09/01/16 12:05 97.9 F 80 18 99/48 96 09/01/16 07:17 98.3 F 76 16 105/67 96 09/01/16 02:35 98.0 F 67 16 103/63 98 08/31/16 23:56 98.2 F 68 20 101/58 98 08/31/16 21:21 100.1 F H 91 22 103/96 97 08/31/16 21:00 98.7 F 90 18 113/66 96 08/31/16 19:45 102.0 F H 99 20 123/73 95 08/31/16 18:10 102.6 F H 97 24 105/66 96 Intake and Output 08/31/16 09/01/16 09/01/16 23:59 07:59 15:59 Intake Total 1350 / 1350 700 / 700 Output Total 900 / 903 500 / 500 Balance -900 / -803 850 / 850 700 / 700 Intake: IV Fluids 1350 / 1350 100 / 100 KCl 40mEq in 0.9% Sodium 1000 / 1000 Chloride 40 meq In 1,000 ml @ 125 mls/hr IVC .Q8H SIL[facility] Rx#:[id number] Zosyn 3.375 GM In 100 / 100 100 / 100 Dextrose 5% (Minibag+) 100 ML 100 ML @ 25 mls/hr IVPB 0500,1300,2100 SILVER Rx#:[id number] Vancocin 1,250 MG In 250 / 250 Dextrose 5% 250 ML @ 166. 67 mls/hr IVPB ONCE ONE Rx#:[id number] Oral 600 / 600 Output: Urine 900 / 900 500 / 500 Other: Meal Dinner Lunch Percent of Meal Consumed 25% 100% Weight 78.199 kg Blood Glucose* 319 125 76 Patient Weight 09/01/16 23:59 Weight 78.199 kg Incision: healing, red, swollen, clean and dry (no active drainage but moderate amount of dressing that was changed a few hours ago) - Labs CBC & BMP: 09/01/16 05:04 09/01/16 05:04 Labs: Abnormal lab results RBC 4.04 M/mcL (4.19-5.50) L 09/01/16 05:04 Hgb 12.1 g/dL (12.9-16.9) L D 09/01/16 05:04 Hct 33.6 % (37.5-50.1) L 09/01/16 05:04 MCHC 36.0 g/dL (31.6-35.5) H 09/01/16 05:04 PT 14.7 Seconds (9.4-12.1) H 08/31/16 10:31 Sodium 135 mEq/L (136-145) L 09/01/16 05:04 Glucose 189 mg/dL (70-99) H 09/01/16 05:04 Calcium 8.5 mg/dL (8.6-10.8) L 09/01/16 05:04 Albumin 3.4 g/dL (3.5-5.0) L 08/31/16 10:31 Globulin 4.3 g/dL (2.4-3.5) H 08/31/16 10:31 Albumin/Globulin Ratio 0.8 (1.1-2.2) L 08/31/16 10:31 Urine Opiates Screen Positive ng/mL (Dsaarr=638) H 08/31/16 18:00 - VTE Documentation of Mechanical Device: Intermittent pneumatic compression device Consult Discharge Plan - Plan Referrals: Óscar Doyle MD [Primary Care Provider] -
[2016-09-02] MEDS: Ketorolac 15 MG/ML VIAL IVP PRN ×3 (03:37→21:49)
[2016-09-02] MEDS: *HR* HYDROmorphone (PF) 1 MG/ML SYRINGE IVP PRN ×5 (03:44→23:54)
[2016-09-02] MEDS: Piperacillin/Tazobactam 3.375 GM in D5% in Water (Mini-Bag+) 100 ML IVPB SCH ×3 (05:11→21:51)
[2016-09-02] MEDS: *HR* Enoxaparin 40 MG/0.4 ML SYRINGE SQ SCH (05:12)
[2016-09-02 07:26] LABS: Basophils % 0.6 %; Eosinophils # 0.1 K/mcL (0.0-0.6); Hematocrit 29.9 % (37.5-50.1); Immature Granulocytes % 0.3 % (0-4); Immature Platelets 5.1 % (1.1-6.1); Lymphocytes # 1.1 K/mcL (0.6-4.6); Lymphocytes % 33.2 %; Mean Corpuscular HGB Conc 34.8 g/dL (31.6-35.5); Mean Corpuscular Hemoglobin 29.6 pg (28.0-33.3); Mean Corpuscular Volume 85.2 fL (83.0-100.0); Mean Platelet Volume 10.9 fL (9.4-12.4); Monocytes # 0.4 K/mcL (0.0-1.3); Monocytes % 11.4 %; Neutrophils # 1.7 K/mcL (1.6-8.9); Platelet Count 171 K/mcL (140-400); Red Blood Count 3.51 M/mcL (4.19-5.50); Red Cell Distribution Width 12.5 % (11.5-14.5); Segmented Neutrophils % 51.5 %
[2016-09-02 07:27] LABS: Hemoglobin 10.4 g/dL (12.9-16.9)
[2016-09-02 07:37] LABS: BUN/Creatinine Ratio 24 (6-26); Blood Urea Nitrogen 20 mg/dL (8-26); Calcium 7.8 mg/dL (8.6-10.8); Carbon Dioxide 25 mEq/L (19-29); Chloride 102 mEq/L (98-109); Glucose 398 mg/dL (70-99); Magnesium 1.3 mg/dL (1.6-2.6); Osmolality,Calculated 299 (280-300); Phosphorous 3.6 mg/dL (2.3-4.7); Sodium 135 mEq/L (136-145); eGFR For African Americans > 60 (> 60); eGFR For Non-African Americans > 60 (> 60)
--- NOTE | 2016-09-02 07:58 | Internal Med Progress Note ---
Date of Encounter: 09/02/16 - Constitutional Vitals: Temp Pulse Resp BP Pulse Ox 98.8 F 79 18 101/60 97 09/02/16 07:08 09/02/16 07:08 09/02/16 07:08 09/02/16 07:08 09/02/16 07:08 General appearance: Present: A&O X 3, no acute distress, answers questions appropriately Internal Medicine: Result - Labs CBC & Chem 7: 09/02/16 06:41 09/02/16 06:41 Labs: Short CBC 09/02/16 Range/Units 06:41 WBC 3.3 L (4.3-11.1) K/mcL Hgb 10.4 L D (12.9-16.9) g/dL Hct 29.9 L (37.5-50.1) % Plt Count 171 (140-400) K/mcL Neutrophils # 1.7 (1.6-8.9) K/mcL BMP 09/02/16 06:41 Sodium 135 L Potassium 4.0 Chloride 102 Carbon Dioxide 25 BUN 20 Creatinine 0.84 Glucose 398 H Calcium 7.8 L - ABG Interpretation ABG results: PT/INR, D-dimer PT 14.7 Seconds (9.4-12.1) H 08/31/16 10:31 - VTE Documentation of Mechanical Device: Intermittent pneumatic compression device Consult Discharge Plan - Plan Referrals: Aileen Olivier, PAC [Physician Seaming Inspector] - 09/08/16 2:30 pm Óscar Doyle MD [Primary Care Provider] -
[2016-09-02] MEDS: Vancomycin 1,000 MG in D5% in Water 250 ML IVPB SCH (07:59)
[2016-09-02] MEDS: Insulin LISPRO 300 UNITS/3 ML VIAL SQ SCH ×8 (08:00→23:55)
[2016-09-02] MEDS: Insulin DETEMIR 100 UNIT/ML X5UNITS SQ SCH ×2 (08:06→21:50)
[2016-09-02] MEDS: *HR* OxyCODONE/APAP 10/325 TABLET PO PRN ×3 (11:22→21:50)
[2016-09-02] MEDS ORDERED: Magnesium Sulfate 2 GM in D5% in Water 100 ML IVPB ONE (12:00)
--- NOTE | 2016-09-02 16:23 | Orthopedics Progress Note ---
Date of Encounter: 09/02/16 Time of Encounter: 15:50 - Assessment and Plan (1) Right forearm cellulitis Current Visit: Yes Status: Acute Incision healing appropriately and swelling/erythema have decreased compared to yesterday. Continue wound care washing with soap/water and apply dry gauze dressings/ kerlix TID. Patient is to continue this wound care routine upon DC. Continue elevation of hand. Continue ROM of hand and elbow as tolerated. Pain control per hospitalist. Continue IV abx per hospitalist. Will need PO abx upon discharge. Follow up with Aileen Olivier in [facility] office in 1 week. Subjective Principal diagnosis: POD#1 - right forearm I&D Interval history: Patient had no events or concerns overnight. Pain has improved. States he has been trying to keep the arm elevated. He has been trying to work on ROM on own. Therapy worked with him today. Objective Vital signs: Vital Signs Temp Pulse Resp BP Pulse Ox 09/02/16 15:54 98.6 F 85 18 105/65 93 L 09/02/16 13:00 102/61 09/02/16 10:38 99.3 F 76 18 102/60 96 09/02/16 07:08 98.8 F 79 18 101/60 97 09/02/16 02:35 97.8 F 70 18 105/66 99 09/01/16 22:16 98.3 F 68 16 90/44 98 09/01/16 18:37 97.8 F 65 18 95/56 99 Intake and Output 09/02/16 09/02/16 09/02/16 07:59 15:59 23:59 Intake Total 100 / 100 710 / 710 Output Total 400 / 400 400 / 400 Balance -300 / -300 310 / 310 Intake: IV Fluids 100 / 100 350 / 350 Zosyn 3.375 GM In 100 / 100 100 / 100 Dextrose 5% (Minibag+) 100 ML 100 ML @ 25 mls/hr IVPB 0500,1300,2100 [facility] Rx#:[id number] Vancocin 1,000 MG In 250 / 250 Dextrose 5% 250 ML @ 167 mls/hr IVPB 0800,2000 SILVER Rx#:[id number] Oral 0 / 0 360 / 360 Output: Urine 400 / 400 400 / 400 Other: Meal Lunch Percent of Meal Consumed 100% Weight 79.4 kg Blood Glucose* 420 185 Patient Weight 09/02/16 23:59 Weight 79.4 kg Incision: healing (No active drainage but small amount of drainage on dressings. Decreased swelling and erythema, moderate tenderness to palpation. ROM of elbow restricted roughly 30-90 degrees flexion. Full ROM of hand and wrist. NV intact. Brisk cap refill. ) - Labs CBC & BMP: 09/02/16 06:41 09/02/16 06:41 Labs: Abnormal lab results WBC 3.3 K/mcL (4.3-11.1) L 09/02/16 06:41 RBC 3.51 M/mcL (4.19-5.50) L 09/02/16 06:41 Hgb 10.4 g/dL (12.9-16.9) L D 09/02/16 06:41 Hct 29.9 % (37.5-50.1) L 09/02/16 06:41 PT 14.7 Seconds (9.4-12.1) H 08/31/16 10:31 Sodium 135 mEq/L (136-145) L 09/02/16 06:41 Glucose 398 mg/dL (70-99) H 09/02/16 06:41 POC Glucose 185 (58-89) H 09/02/16 15:27 Calcium 7.8 mg/dL (8.6-10.8) L 09/02/16 06:41 Magnesium 1.3 mg/dL (1.6-2.6) L 09/02/16 06:41 Albumin 3.4 g/dL (3.5-5.0) L 08/31/16 10:31 Globulin 4.3 g/dL (2.4-3.5) H 08/31/16 10:31 Albumin/Globulin Ratio 0.8 (1.1-2.2) L 08/31/16 10:31 Urine Opiates Screen Positive ng/mL (Dzwooj=799) H 08/31/16 18:00 - VTE Documentation of Mechanical Device: Intermittent pneumatic compression device Consult Discharge Plan - Plan Referrals: Aileen Olivier, PAC [Physician Feed Research Aide] - 09/08/16 2:30 pm Óscar Doyle MD [Primary Care Provider] -
[2016-09-02] MEDS ORDERED: Magnesium Sulfate 1 GM in D5% in Water 100 ML IVPB ONE (18:00)
[2016-09-02] MEDS ORDERED: Vancomycin 1,250 MG in D5% in Water 250 ML IVPB SCH (22:00)
[2016-09-03] MEDS: *HR* OxyCODONE/APAP 10/325 TABLET PO PRN ×3 (02:14→10:14)
[2016-09-03] MEDS: *HR* Enoxaparin 40 MG/0.4 ML SYRINGE SQ SCH (05:52)
[2016-09-03] MEDS: Piperacillin/Tazobactam 3.375 GM in D5% in Water (Mini-Bag+) 100 ML IVPB SCH (05:52)
[2016-09-03 07:41] VITALS: BP 128/71
[2016-09-03] MEDS: Insulin DETEMIR 100 UNIT/ML X5UNITS SQ SCH (08:16)
[2016-09-03] MEDS: Insulin LISPRO 300 UNITS/3 ML VIAL SQ SCH ×2 (08:16→08:17)
[2016-09-03] MEDS: *HR* HYDROmorphone (PF) 1 MG/ML SYRINGE IVP PRN (08:20)
--- NOTE | 2016-09-03 09:18 | Discharge Summary ---
Date of Encounter: 09/03/16 Time of Encounter: 09:16 - Discharge Medications Prescriptions: OxyCODONE/APAP 10/325 [Percocet 10/325 MG] 1 each PO Q4HR PRN #30 tablet PRN Reason: Pain Sulfamethoxazole/Trimeth DS [Bactrim DS] 1 each PO BID 7 Days Home Medications: Insulin Glargine,Hum.rec.anlog [Lantus Solostar] 55 unit SQ HS 03/05/16 [History ] Insulin LISPRO [Humalog Kwikpen U-100] 14 unit SQ TIDWM 03/05/16 [History] OxyCODONE/APAP 10/325 [Percocet 10/325 MG] 1 each PO Q4HR PRN #30 tablet [Rx] Sulfamethoxazole/Trimeth DS [Bactrim DS] 1 each PO BID 7 Days 09/03/16 [Rx] Allergies/Adverse Reactions: Allergies hydrocodone Allergy (Verified 08/31/16 13:44) Rash tramadol Allergy (Verified 03/05/16 11:37) Rash Date of admission: 08/31/16 17:46 Primary care physician: Óscar Doyle MD Consults: 08/31/16 20:57 Consult to Forming And Assembling Supervisor [CONS] Routine Comment: Discharging clinician: Roma Osman Anticipated date of discharge: 09/03/16 - Patient Status Disposition: Home, Self-Care Condition: Fair Functional capacity at discharge: independent ambulation Overall status at discharge: patient is progressing back to baseline - Discharge Instructions Follow Up With: Aileen Olivier, PAC [Physician Internal Control Consultant] - 09/08/16 2:30 pm - Diet and Activity Activity: resume usual activities as tolerated Diet: diabetic diet Interval History: Mr. Medina is a 41 year old male who is right-hand dominant, complaining of a 4 day history of right elbow swelling and pain. The patient reports that a refrigerator fell of his forearm 4 days ago. Less than a got red and swollen , and he states that he used a small needle to try and drain it and got worse overnight. The patient came in to emergency room . Patient has significant past history of IV drug abuse with heroin. Patient states he has not used heroin for 1 year now. He was admitted for right forearm cellulitis, orthopedics was consulted and he underwent I&D for deep abscess. Orthopedics was following the patient while inpatient. He was continued on IV antibiotics. Wound culture showed gram-positive cocci. He has remained hemodynamically stable,swelling/erythema have decreased , pain is much tolerable. Continue wound care washing with soap/water and apply dry gauze dressings/ kerlix TID. Patient is to continue this wound care routine upon DC. Patient is being discharged on oral antibiotics and will follow up with Aileen Olivier in office in 1 week. Hospital course: Mr. Medina is a 41 year old male Time spent discussing smoking cessation with patient: more than 10 minutes - Time Spent with Patient Total time spent providing and/or coordinating discharge services: Greater than 30 minutes - Constitutional Vitals: Temp Pulse Resp BP Pulse Ox 97.8 F 81 18 128/71 99 09/03/16 07:41 09/03/16 07:41 09/03/16 07:41 09/03/16 07:41 09/03/16 07:41 General appearance: Present: A&O X 3, no acute distress, answers questions appropriately Exam: - Head Head exam: Present: atraumatic, normocephalic - Eye Eye exam: Present: PERRL, conjuntiva pink, sclera anicteric - Respiratory Respiratory exam: Present: CTAB. Absent: accessory muscle use, rales, rhonchi, wheezes - Cardiovascular Cardiovascular exam: Present: RRR, +S1, +S2. Absent: diastolic murmur, gallop, rubs, systolic murmur - GI/Abdominal GI/Abdominal exam: Present: normal bowel sounds, soft, no peritoneal signs. Absent: distended, tenderness - Extremities Exam Extremities exam: Present: warm, radial pulses palpable and symetrical. Absent : calf tenderness, pedal edema (Right arm wrapped in dressing) - Neurological Exam Neurological exam: Present: alert, oriented X3 - Psychiatric Psychiatric exam: Present: normal affect, normal mood - VTE Documentation of Mechanical Device: Intermittent pneumatic compression device
[2016-09-03] MEDS ORDERED: Aminoglycoside Consult 1 EACH MC ONE (11:02)
== END 2016-09-03 11:03 | disposition home or self-care (01) | DRG 364 ==
LOC: 3ANU 10:10 → EMEROO 10:10 → 3ANU 13:11
PROVIDERS: ADMIT Family Medicine; ATTEND Internal Medicine Endocrinology, Diabetes & Metabolism

== ENCOUNTER 2020-05-05 21:56 | Observation (INO) ==
[2020-05-05] MEDS ORDERED: *HR* Promethazine 25 MG/ML VIAL IM ONE (22:16)
[2020-05-05] MEDS ORDERED: Isovue-370 500 ML BOTTLE IVP ONE (22:16)
[2020-05-05] MEDS ORDERED: Ketorolac 30 MG/ML VIAL IVP ONE (22:16)
[2020-05-05] MEDS ORDERED: 0.9 % Sodium Chloride 1,000 ML IVC ONE (22:16)
[2020-05-05 23:54] LABS: Basophils # 0.1 K/mcL (0.0-0.2); Basophils % 0.9 %; Eosinophils # 0.1 K/mcL (0.0-0.6); Hematocrit 36.2 % (37.5-50.1); Hemoglobin 12.3 g/dL (12.9-16.9); Immature Granulocytes % 0.3 % (0-4); Lymphocytes # 1.1 K/mcL (0.6-4.6); Lymphocytes % 17.5 %; Mean Corpuscular Hemoglobin 28.9 pg (28.0-33.3); Mean Platelet Volume 10.1 fL (9.4-12.4); Monocytes # 0.3 K/mcL (0.0-1.3); Monocytes % 4.9 %; Neutrophils # 4.8 K/mcL (1.6-8.9); Platelet Count 226 K/mcL (140-400); Red Blood Count 4.26 M/mcL (4.19-5.50); Red Cell Distribution Width 12.3 % (11.5-14.5); Segmented Neutrophils % 74.4 %; White Blood Count 6.5 K/mcL (4.3-11.1)
[2020-05-05 23:59] LABS: Alanine Aminotransferase 44 Units/L (7-52); Albumin 3.7 g/dL (3.5-5.7); Albumin/Globulin Ratio 1.4 (1.1-2.2); Alkaline Phosphatase 50 Units/L (34-104); Aspartate Amino Transferase 27 Units/L (13-39); BUN/Creatinine Ratio 15 (6-26); Bilirubin,Direct 0.2 mg/dL (0.0-0.2); Bilirubin,Indirect 0.4 mg/dL (0.0-1.0); Bilirubin,Total 0.6 mg/dL (0.3-1.0); Blood Urea Nitrogen 12 mg/dL (6-20); Calcium 8.8 mg/dL (8.6-10.3); Carbon Dioxide 27 mEq/L (23-29); Chloride 105 mEq/L (98-107); Globulin 2.7 g/dL (2.4-3.5); Glucose 188 mg/dL (70-105); Lipase 5 Units/L (11-82); Magnesium 1.8 mg/dL (1.6-2.6); Osmolality,Calculated 293 (280-300); Potassium 3.5 mEq/L (3.5-5.1); Sodium 139 mEq/L (136-145); Total Protein 6.4 g/dL (6.4-8.9); eGFR For African Americans > 60 (> 60); eGFR For Non-African Americans > 60 (> 60)
[2020-05-06] MEDS ORDERED: *HR* FentaNYL (PF) 100 MCG/2 ML VIAL IVP ONE (01:11)
[2020-05-06 02:59] LABS: Bacteria,Urine Moderate per hpf (None-Few); Bilirubin,Urine Negative (Negative); Blood,Urine Large (Negative); Budding Yeast,Urine Many per hpf (None Seen); Clarity,Urine Ex.Turbid (Clear); Color,Urine Yellow (Yellow); Glucose,Urine (UA) Normal (Normal); Ketones,Urine Negative (Negative); Leukocyte Esterase,Urine Negative (Negative); Mucus,Urine Few per lpf (None-Few); Nitrite,Urine Negative (Negative); Protein,Urine Trace mg/dL (Neg-Trace); RBC,Urine TNTC per hpf (0-3); Specific Gravity,Urine > 1.030 (1.010-1.025); WBC,Urine 0-3 per hpf (0-3)
[2020-05-06] MEDS ORDERED: Naloxone 0.4 MG/ML INJ IVP PRN (03:42)
[2020-05-06] MEDS ORDERED: Acetaminophen 325 MG TABLET PO PRN (03:42)
[2020-05-06] MEDS ORDERED: Ondansetron ODT 4 MG TAB.RAPDIS SL PRN (03:42)
[2020-05-06] MEDS ORDERED: *HR* Dextrose 50 % in Water (Vial) 50 ML VIAL IVP PRN (04:22)
[2020-05-06] MEDS ORDERED: Dextrose Gel 15 GM/37.5 ML TUBE PO PRN ×2 (04:22)
[2020-05-06] MEDS: 0.9 % Sodium Chloride 1,000 ML IVC SCH ×2 (05:22→14:22)
[2020-05-06] MEDS: Ketorolac 15 MG/ML VIAL IVP SCH ×4 (05:22→23:38)
[2020-05-06] MEDS: Insulin LISPRO 300 UNITS/3 ML VIAL SQ SCH ×4 (05:29→16:59)
[2020-05-06] MEDS: cefTRIAXone 1,000 MG in 0.9 % Sodium Chloride Mini Bag 100 ML IVPB SCH (09:07)
[2020-05-06] MEDS: Morphine Sulfate 2 MG/ML SYRINGE IVP PRN ×2 (09:47→18:14)
[2020-05-06 10:11] LABS: Amphetamine Screen,Urine Positive ng/mL (Cutoff=1000); Barbiturate Screen,Urine Negative ng/mL (Cutoff=200); Benzodiazepines Screen,Urine Negative ng/mL (Cutoff=200); Cannabinoid Screen,Urine Negative ng/mL (Cutoff = 50); Cocaine Screen,Urine Negative ng/mL (Cutoff= 300); Opiate Screen,Urine Negative ng/mL (Cutoff=300); Phencyclidine Screen,Urine Negative ng/mL (Cutoff=25)
[2020-05-06 10:17] LABS: Hemoglobin 10.9 g/dL (12.9-16.9); Mean Corpuscular HGB Conc 34.1 g/dL (31.6-35.5); Mean Corpuscular Hemoglobin 29.3 pg (28.0-33.3); Mean Platelet Volume 10.2 fL (9.4-12.4); Platelet Count 185 K/mcL (140-400); Red Blood Count 3.72 M/mcL (4.19-5.50); Red Cell Distribution Width 12.4 % (11.5-14.5); White Blood Count 5.2 K/mcL (4.3-11.1)
[2020-05-06 10:30] LABS: INR 1.2; Prothrombin Time 14.3 Seconds (9.4-12.1)
[2020-05-06 10:40] LABS: BUN/Creatinine Ratio 14 (6-26); Blood Urea Nitrogen 10 mg/dL (6-20); Carbon Dioxide 26 mEq/L (23-29); Chloride 112 mEq/L (98-107); Glucose 80 mg/dL (70-105); Magnesium 1.8 mg/dL (1.6-2.6); Osmolality,Calculated 292 (280-300); Phosphorous 4.1 mg/dL (2.7-4.5); Potassium 3.5 mEq/L (3.5-5.1); Sodium 142 mEq/L (136-145); eGFR For African Americans > 60 (> 60); eGFR For Non-African Americans > 60 (> 60)
[2020-05-06 11:14] LABS: Estimated Average Glucose 123 mg/dl
[2020-05-06 11:36] LABS: C-Reactive Protein < 5 mg/L (Less than 10)
[2020-05-06] MEDS: D5% in Water 1,000 ML IVC PRN (23:38)
[2020-05-07] MEDS: Ketorolac 15 MG/ML VIAL IVP SCH ×2 (05:46→12:33)
[2020-05-07] MEDS: Insulin LISPRO 300 UNITS/3 ML VIAL SQ SCH ×2 (07:47→12:30)
[2020-05-07] MEDS: cefTRIAXone 1,000 MG in 0.9 % Sodium Chloride Mini Bag 100 ML IVPB SCH (09:26)
[2020-05-07] MEDS: Morphine Sulfate 2 MG/ML SYRINGE IVP PRN (09:33)
[2020-05-07] MEDS: D5% in Water 1,000 ML IVC PRN (14:07)
[2020-05-07 15:35] VITALS: BP 139/73
== END 2020-05-07 17:42 | disposition home or self-care (01) ==
LOC: EMEROOARM 21:56 → 3ANU 21:56
PROVIDERS: ADMIT Student in an Organized Health Care Education/Training Program; ATTEND Student in an Organized Health Care Education/Training Program